=== PATIENT | female | born 2000 | race Two or more races ===

== ENCOUNTER → 2021-12-12 | Emergency (ER) | payer MEDICAID, OTHER ==
[~2021-12-12] VITALS: Ht 162.6 cm; Wt 75.0 kg
[~2021-12-12] MED LIST: NITR-87 PO
[2021-12-12 21:55] LABS: Basophils # (auto) 0 10 ^3/uL (0-0.2); Basophils % (auto) 0.2 % (0.0-2.0); Eosinophils # (auto) 0.1 10 ^3/uL (0-0.8); Eosinophils % (auto) 0.5 % (0.0-7.0); Hematocrit 28.9 % (36.0-46.0); Hemoglobin 9.6 g/dL (12.2-16.2); Lymphocytes # (auto) 0.9 10 ^3/uL (0.4-5.4); Lymphocytes % (auto) 9.3 % (10.0-50.0); Mean Corpuscular Hemoglobin 27.1 pg (28.0-32.0); Mean Corpuscular Hgb Conc. 33.4 g/dL (32.0-36.0); Mean Corpuscular Volume 81.3 fL (80.0-100.0); Monocytes # (auto) 0.6 10 ^3/uL (0-1.3); Monocytes % (auto) 5.8 % (0.0-12.0); Neutrophils # (auto) 8.3 10 ^3/uL (1.6-8.6); Neutrophils % (auto) 84.2 % (37.0-80.0); Red Blood Cells 3.55 10^6/uL (4.0-5.20); Red Cell Distribution Width 13.2 % (11.8-14.3); White Blood Cell 9.8 10^3/uL (4.4-10.8)
[2021-12-12 22:13] LABS: Potassium 4.4 mmol/L (3.5-5.1)
[2021-12-12 22:15] LABS: Albumin 3.7 g/dL (3.4-5.0); BUN/Creatinine Ratio 17.4
[2021-12-12 22:19] LABS: Bilirubin, Total 0.4 mg/dL (0.2-1.0); Total Protein 7.1 g/dL (6.4-8.2)
[2021-12-12 22:56] LABS: Urine Bacteria FEW /hpf (None Seen); Urine Mucus MODERATE (None Seen); Urine WBC 5 /hpf (0 - 5)
[2021-12-12 22:59] LABS: Urine Blood 2+ /uL (Negative)
[2021-12-13 00:03] VITALS: BP 109/76
== END | disposition home or self-care (01) ==
LOC: ER 20:05
DX: D64.9 Anemia, unspecified (principal); N39.0 Urinary tract infection, site not specified; R55 Syncope and collapse
CPT/HCPCS: 36415; 70450; 71045; 74176; 80053; 81001; 81025; 83690; 84484; 85025; 93005

== ENCOUNTER 2022-04-08 17:27 | Emergency (ER) | payer MEDICAID ==
[~2022-04-08] VITALS: Ht 162.6 cm; Wt 63.0 kg
[2022-04-08 17:39] VITALS: BP 112/62
[2022-04-08 19:31] LABS: Basophils # (auto) 0.1 10 ^3/uL (0-0.2); Eosinophils # (auto) 0.1 10 ^3/uL (0-0.8); Eosinophils % (auto) 0.6 % (0.0-7.0); Lymphocytes # (auto) 1.4 10 ^3/uL (0.4-5.4); Neutrophils # (auto) 7.6 10 ^3/uL (1.6-8.6)
[2022-04-08 19:32] LABS: Basophils % (auto) 0.5 % (0.0-2.0); Hematocrit 34.6 % (36.0-46.0); Hemoglobin 11.2 g/dL (12.2-16.2); Lymphocytes % (auto) 14.8 % (10.0-50.0); Mean Corpuscular Hemoglobin 24.4 pg (28.0-32.0); Mean Corpuscular Hgb Conc. 32.4 g/dL (32.0-36.0); Mean Corpuscular Volume 75.2 fL (80.0-100.0); Monocytes # (auto) 0.6 10 ^3/uL (0-1.3); Monocytes % (auto) 6.2 % (0.0-12.0); Neutrophils % (auto) 77.9 % (37.0-80.0); Nucleated Red Blood Cells % 0.1 %; Red Cell Distribution Width 18.5 % (11.8-14.3); White Blood Cell 9.7 10^3/uL (4.4-10.8)
[2022-04-08 19:49] LABS: Albumin 4.2 g/dL (3.4-5.0); Calcium 9.5 mg/dL (8.5-10.1); Potassium 3.5 mmol/L (3.5-5.1)
[2022-04-08 19:51] LABS: Bilirubin, Total 0.4 mg/dL (0.2-1.0)
== END 2022-04-09 01:47 | disposition left against medical advice (07) ==
LOC: ER 17:27
DX: R10.2 Pelvic and perineal pain (principal); R11.2 Nausea with vomiting, unspecified
CPT/HCPCS: 36415; 74176; 80053; 83690; 85025

== ENCOUNTER → 2024-01-06 | Outpatient (CLI) | payer MEDICAID ==
[2024-01-06 12:44] LABS: Basophils # (auto) 0.1 10 ^3/uL (0-0.2); Basophils % (auto) 0.8 % (0.0-2.0); Eosinophils # (auto) 0.2 10 ^3/uL (0-0.8); Eosinophils % (auto) 2.9 % (0.0-7.0); Hematocrit 39.3 % (36.0-46.0); Hemoglobin 12.3 g/dL (12.2-16.2); Lymphocytes # (auto) 1.5 10 ^3/uL (0.4-5.4); Lymphocytes % (auto) 21.6 % (10.0-50.0); Mean Corpuscular Hemoglobin 27.1 pg (28.0-32.0); Mean Corpuscular Hgb Conc. 31.3 g/dL (32.0-36.0); Mean Corpuscular Volume 86.5 fL (80.0-100.0); Monocytes # (auto) 0.5 10 ^3/uL (0-1.3); Monocytes % (auto) 6.7 % (0.0-12.0); Neutrophils # (auto) 4.7 10 ^3/uL (1.6-8.6); Platelet Count (auto) 279 10^3/uL (140-450); Red Blood Cells 4.54 10^6/uL (4.0-5.20); Red Cell Distribution Width 16.7 % (11.8-14.3)
[2024-01-06 13:37] LABS: % Iron Saturation 21.6 % (15-50)
[2024-01-06 13:39] LABS: Alanine Aminotransferase 20 U/L (7-40); Albumin 4.8 g/dL (3.2-4.8); Alkaline Phosphatase 82 U/L (46-116); Anion Gap 9 (5-15); Aspartate Aminotransferase 13 U/L (13-40); BUN/Creatinine Ratio 6.1 (10.0-20.0); Bilirubin, Total 0.9 mg/dL (0.2-1.0); Blood Urea Nitrogen 6 mg/dL (9-23); Calcium 10.1 mg/dL (8.7-10.4); Carbon Dioxide 25 mmol/L (20-31); Chloride 107 mmol/L (98-107); Glucose 89 mg/dL (74-106); Potassium 3.7 mmol/L (3.5-5.1); Sodium 141 mmol/L (136-145); Total Protein 7.6 g/dL (5.7-8.2)
[2024-01-06 13:50] LABS: Thyroid Stimulating Hormone 0.56 uIU/mL (0.55-4.78)
[2024-01-06 13:57] LABS: Beta HCG, Quantitative 1.5 mIU/mL (1.5-4.2)
[2024-01-07 09:07] LABS: Estradiol 53.8 pg/mL (.); Testosterone 54 ng/dL (13-71)
[2024-01-07 12:18] LABS: Ferritin 11.3 ng/mL (10-291); Folate (Folic Acid) 6.19 ng/mL (>5.38); Follicle Stimulating Hormone 8.82 IU/L (SEE BELOW); Prolactin 2.91 ng/mL (2.8-29.2)
[2024-01-07 12:19] LABS: Leuteinizing Hormone 3.7 IU/L
[2024-01-07 12:20] LABS: Free T4 (Free Thyroxine) 1.35 ng/dL (0.89-1.76)
== END | disposition home or self-care (01) ==
LOC: LAB 11:51
DX: E28.2 Polycystic ovarian syndrome (principal); D64.9 Anemia, unspecified; Z87.42 Personal history of other diseases of the female genital tract
CPT/HCPCS: 36415; 80053; 82607; 82626; 82670; 82728; 82746; 83001; 83002; 83036; 83540; 83550; 84144; 84146; 84402; 84403; 84439; 84443; 84702; 85025